=== PATIENT | female | born 1995 | race Caucasian/White ===

== ENCOUNTER 2019-11-29 14:02 | Emergency (ER) | payer MEDICAID, OTHER ==
[~2019-11-29] VITALS: Ht 160 cm; Wt 90.9 kg
--- NOTE | 2019-11-29 14:49 | ED Cough/URI ---
General Chief Complaint: Cough/Cold/Flu Symptoms Stated Complaint: FEVER,CONGESTION Nursing Triage Note: Pt arrived by private vehicle with chief complaint of fever and cough. The pt has been feeling like "crap" since wednesday. Pt stated she had a fever of 100 degree yesterday. Pt has been having a headache and has been having chills. Pt took tylenol she stated. Pt stated she has been having a dry cough. Pt stated she has to be checked out to return to work. Sepsis Screen: No Definite Risk Source: patient Exam Limitations: no limitations History of Present Illness Date Seen by Provider: Nov 29, 2019 Time Seen by Provider: 14:30 Initial Comments The patient is a 24-year-old female who presents for evaluation of fever, cough, headache, and general malaise. She took her temperature yesterday and states that it was under degrees Fahrenheit. At the time she took Tylenol. She's been having a nonproductive cough over the last few days. She does smoke cigarettes. 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 Additionally, she has a sore throat. She denies neck pain or neck stiffness, nausea or vomiting, diarrhea, back or flank pain, abdominal pain, dizziness or syncope. She states that she is having some mild rib discomfort only when she coughs. She does not feel short of breath at this time while she is sitting down not exerting herself but says that with some exertion she does get a little short of breath. I did advise the patient to stop smoking cigarettes. Timing/Duration: other (3 days) Severity/Quality: mild, dry cough Associated Symptoms: cough, fever/chills, headache, muscle aches Allergies and Home Medications Patient Home Medication List Home Medication List Reviewed: Yes Review of Systems Review of Systems Constitutional: chills, fever EENTM: throat pain Respiratory: cough Cardiovascular: no symptoms reported Gastrointestinal: no symptoms reported Genitourinary: no symptoms reported Musculoskeletal: no symptoms reported Skin: no symptoms reported Psychiatric/Neurological: No Symptoms Reported Hematologic/Lymphatic: No Symptoms Reported Immunological/Allergic: no symptoms reported All Other Systems Reviewed Negative Unless Noted: Yes Past Whzeeqh-Sxckgm-Kqfish Hx Past Med/Social Hx: Reviewed Nursing Past Med/Soc Hx Patient Social History Alcohol Use: Occasionally Uses Recreational Drug Use: No Smoking Status: Current Everyday Smoker Type Used: Cigarettes 2nd Hand Smoke Exposure: Yes Recent Foreign Travel: No Contact w/Someone Who Travel: No Recent Infectious Disease Expo: No Recent Hopitalizations: No Physical Abuse: No Sexual Abuse: No Mistreated: No Fear: No Seasonal Allergies Seasonal Allergies: No Past Medical History Surgeries: No Respiratory: No Cardiac: No 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 oz. kg; 35.00 BMI Method: General Appearance: WD/WN, no apparent distress Eyes: Bilateral Eye Normal Inspection, Bilateral Eye PERRL, Bilateral Eye EOMI HEENT: PERRL/EOMI, normal ENT inspection, pharynx normal Neck: non-tender, full range of motion Respiratory: chest non-tender, lungs clear, normal breath sounds, no respiratory distress, other (not coughing) Cardiovascular: regular rate, rhythm, no edema, no JVD Gastrointestinal: normal bowel sounds, non tender, soft Extremities: normal range of motion, non-tender, no pedal edema Neurologic/Psychiatric: rejogger II-XII nml as tested, no motor/sensory deficits, alert, normal mood/affect, oriented x 3 Skin: normal color, warm/dry Progress/Results/Core Measures Suspected Sepsis Recent Fever Within 48 Hours: No Infection Criteria Present: Suspected New Infection New/Unexplained Altered Menta: No Sepsis Screen: No Definite Risk SIRS Temperature: Pulse: 76 Respiratory Rate: 18 Blood Pressure 105 /71 Mean: 82 Results/Orders Lab Results Laboratory Tests Test 11/29/19 14:29 Range/Units Group A Streptococcus Screen NEGATIVE NEGATIVE Micro Results Microbiology 11/29/19 Influenza Types A,B Antigen (YO) - Final, Complete My Orders Orders - DAVID VALIENTE DO Influenza A And B Antigens (11/29/19 14:29) Rapid Strep A Screen (11/29/19 14:29) Chest 1 View Ap/Pa Only (11/29/19 14:29) Vital Signs/I&O 11/29/19 14:21 Temp 36.2 Pulse 76 Resp 18 B/P (MAP) 105/71 (82) Pulse Ox 95 O2 Delivery Room Air Capillary Refill : Less Than 3 Seconds Blood Pressure Mean: 82 Progress Note : Progress Note @1506 - patient has a likely viral flulike illness and/or bronchitis. Her symptoms did not seem to fit the new coronavirus. Advised the patient to stay home from work until she is fever free for at least 2-3 days and feeling better and to discuss this with her primary care doctor before returning to work. Advised the patient to return to the emergency Department immediately for difficult breathing, new or worsening symptoms. Workup today fails to reveal any emergent pathology and the patient is stable for discharge. Advised the patient to stop smoking cigarettes. Departure Impression Primary Impression: Influenza-like symptoms Additional Impression: Bronchitis Disposition: 01 HOME, SELF-CARE Condition: Stable Departure-Patient Inst. Decision time for Depature: 15:08 Referrals: NO,LOCAL PHYSICIAN (PCP/Family) Primary Care Physician Patient Instructions: Viral Syndrome (DC), Acute Bronchitis, Adult (DC) Add. Discharge Instructions: Follow-up with your doctor in the next 2-3 days by calling their office. Take Tylenol home for fever or pain relief. Return to the emergency department for difficulty breathing, new or worsening symptoms. Scripts Benzonatate (TESSALON PERLES) 100 Mg Capsule 100 MG PO Q8H PRN for COUGH for 5 Days, #15 CAP Prov: DAVID VALIENTE DO 11/29/19 Albuterol Sulfate (PROAIR HFA) 1 Puff Puff 2 PUFF IH Q4H PRN for WHEEZING for 30 Days, #1 PUFF 1 PUFF = 90 MCG Prov: DAVID VALIENTE DO 11/29/19 Prednisone (Prednisone) 20 Mg Tab 40 MG PO DAILY for 5 Days, #5 TAB 0 Refills Prov: DAVID VALIENTE DO 11/29/19 DAVID VALIENTE DO Nov 29, 2019 14:49
--- OUTSIDE RECORDS SUMMARY | 2019-11-29 14:52 | XMS REPORT | Continuity of Care Document ---
Author Organization Unknown Address Unknown Phone Unavailable Allergies There is no data. Medications There is no data. Problems There is no data. Procedures There is no data. Results There is no data. Encounters ACCT No. Visit Date/Time Discharge Status Pt. Type Provider Facility Loc./Unit Complaint [id number] 11/29/2019 14:09:[address] Emergency STEFFANIE HERNANDEZ DO [facility] ER FS FEVER,CONGESTION
--- NOTE | 2019-11-29 14:56 | Diagnostic Imaging Report ---
Indication: Cough and fever Portable chest 2:47 PM Heart size and pulmonary vascularity are normal. Lungs are clear. There are no effusions or pneumothoraces. IMPRESSION: Negative chest Dictated by: Dictated on workstation # [id number]
[2019-11-29] MEDS ORDERED: PRD20T PO (15:13)
[2019-11-29] MEDS ORDERED: BENZ100C18 PO (15:13)
[2019-11-29] MEDS ORDERED: RT-ALBUINH IH (15:13)
[2019-11-29 15:20] VITALS: BP 125/80
== END 2019-11-29 15:20 | disposition home or self-care (01) ==
LOC: ER FS 14:09
DX: J40 Bronchitis, not specified as acute or chronic (principal); F17.210 Nicotine dependence, cigarettes, uncomplicated
CPT/HCPCS: 71045; 87430; 87804

== ENCOUNTER 2020-01-30 10:53 | Emergency (ER) | payer MEDICAID ==
[~2020-01-30] VITALS: Ht 160 cm; Wt 98.8 kg
[~2020-01-30 10:53] MED LIST: BENZ100C18 PO; PRD20T PO; RT-ALBUINH IH
--- NOTE | 2020-01-30 11:10 | ED General ---
General Stated Complaint: ABD PAIN; DIARRHEA Source of Information: Patient, Old Records, RN/MD History of Present Illness Date Seen by Provider: Jan 30, 2020 Time Seen by Provider: 11:00 Initial Comments This patient is a 24-year-old female presents to the emergency department complaining abdominal cramping and diarrhea for the past 3 days. Patient states she noticed it after [place] food. Patient states she's had significant cramping. Patient states she noted blood in her stool this morning. Patient s tates been mostly watery for the past Several days. We'll do medical evaluation treatment is needed Timing/Duration: 2-3 Days Associated Systoms: No Denies Symptoms, No Chest Pain, No Cough, No Diaphoresis, No Fever/Chills, No Headaches; Loss of Appetite; No Malaise, No Nausea/Vomiting, No Rash, No Seizure, No Shortness of Air, No Syncope, No Weakness, No Other Allergies and Home Medications Allergies Coded Allergies: No Known Drug Allergies (Unverified , 01/30/20) Home Medications Albuterol Sulfate 1 Puff Puff, 2 PUFF IH Q4H PRN for WHEEZING 1 PUFF = 90 MCG Prescribed by: DAVID VALIENTE on 11/29/191512 Benzonatate 100 Mg Capsule, 100 MG PO Q8H PRN for COUGH Prescribed by: DAVID VALIENTE on 11/29/191512 Prednisone 20 Mg Tab, 40 MG PO DAILY Prescribed by: DAVID VALIENTE on 11/29/191512 Patient Home Medication List Home Medication List Reviewed: Yes Review of Systems Review of Systems Constitutional: No no symptoms reported; see HPI; No chills, No diaphoresis, No dizziness, No fever, No malaise, No weakness, No weight gain, No weight loss, No other EENTM: No see HPI, No no symptoms reported, No ear discharge, No hearing loss, No ear pain, No blurred vision, No double vision, No eye pain, No tearing, No vision loss, No dental problems, No hoarseness, No mouth pain, No mouth swelling, No epistaxis, No nose congestion, No nose pain, No throat pain, No throat swelling, No other Respiratory: No no symptoms reported, No see HPI, No cough, No dyspnea on exertion, No hemoptysis, No orthopnea, No phlegm, No short of breath, No stridor, No wheezing, No other Cardiovascular: No no symptoms reported, No see HPI, No chest pain, No edema, No Hx of Intervention, No palpitations, No syncope, No vascular heart diseas, No other Gastrointestinal: No RUQ, No LUQ, No RLQ, No LLQ, No no symptoms reported; see HPI, abdominal pain; No constipation; diarrhea; No dysphagia, No hematemesis, No heartburn, No jaundice, No loss of appetite, No melena, No nausea, No vomiting, No other Genitourinary: No no symptoms reported, No see HPI, No decreased output, No discharge, No dysuria, No frequency, No hematuria, No hesitancy, No incontinence, No nocturia, No pain, No other Musculoskeletal: No no symptoms reported, No see HPI, No back pain, No gout, No joint pain, No joint swelling, No muscle pain, No muscle stiffness, No muscle cramps, No muscle twitching, No muscle weakness, No neck pain, No other Skin: No no symptoms reported, No see HPI, No change in color, No change in hair/nails, No dryness, No hx of skin cancer, No lesions, No lumps, No pruritus, No rash, No other All Other Systems Reviewed Negative Unless Noted: Yes Past Oqotkss-Auzpjz-Ynythq Hx Patient Social History Type Used: Cigarettes 2nd Hand Smoke Exposure: Yes Recent Foreign Travel: No Contact w/Someone Who Travel: No Recent Hopitalizations: No Seasonal Allergies Seasonal Allergies: No Past Medical History Surgeries: No Respiratory: No Cardiac: 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 oz. kg; 35.00 BMI Method: General Appearance: No Apparent Distress, WD/WN Neck: Full Range of Motion, Normal Inspection, Non Tender, Supple Respiratory: Chest Non Tender, Lungs Clear, Normal Breath Sounds, No Accessory Muscle Use, No Respiratory Distress Cardiovascular: Regular Rate, Rhythm, No Edema, No Gallop, No JVD, No Murmur, Normal Peripheral Pulses Gastrointestinal: Normal Bowel Sounds, No Organomegaly, No Pulsatile Mass, Non Tender, Soft Neurologic/Psychiatric: Alert, Oriented x3, No Motor/Sensory Deficits, Normal Mood/Affect Skin: Normal Color, Warm/Dry Progress/Results/Core Measures Suspected Sepsis SIRS Temperature: Pulse: Respiratory Rate: Laboratory Tests 01/30/20 11:15: White Blood Count 10.7 Blood Pressure / Mean: Laboratory Tests 01/30/20 11:15: Creatinine 0.81, Platelet Count 204, Total Bilirubin 0.4 Results/Orders Lab Results Laboratory Tests Test 01/30/20 11:15 Range/Units White Blood Count 10.7 4.3-11.0 10^3/uL Red Blood Count 5.91 H 4.35-5.85 10^6/uL Hemoglobin 15.3 11.5-16.0 G/DL Hematocrit 48 35-52 % Mean Corpuscular Volume 81 80-99 FL Mean Corpuscular Hemoglobin 26 25-34 PG Mean Corpuscular Hemoglobin Concent 32 32-36 G/DL Red Cell Distribution Width 14.6 H 10.0-14.5 % Platelet Count 204 130-400 10^3/uL Mean Platelet Volume 11.6 H 7.4-10.4 FL Neutrophils (%) (Auto) 80 H 42-75 % Lymphocytes (%) (Auto) 10 L 12-44 % Monocytes (%) (Auto) 8 0-12 % Eosinophils (%) (Auto) 1 0-10 % Basophils (%) (Auto) 1 0-10 % Neutrophils # (Auto) 8.5 H 1.8-7.8 X 10^3 Lymphocytes # (Auto) 1.1 1.0-4.0 X 10^3 Monocytes # (Auto) 0.9 0.0-1.0 X 10^3 Eosinophils # (Auto) 0.1 0.0-0.3 10^3/uL Basophils # (Auto) 0.1 0.0-0.1 10^3/uL Urine Color YELLOW Urine Clarity CLEAR Urine pH 6.0 5-9 Urine Specific [place] >=1.030 1.016-1.022 Urine Protein NEGATIVE NEGATIVE Urine Glucose (UA) NEGATIVE NEGATIVE Urine Ketones NEGATIVE NEGATIVE Urine Nitrite NEGATIVE NEGATIVE Urine Bilirubin NEGATIVE NEGATIVE Urine Urobilinogen 0.2 < = 1.0 MG/DL Urine Leukocyte Esterase NEGATIVE NEGATIVE Urine RBC (Auto) NEGATIVE NEGATIVE Urine RBC NONE /HPF Urine WBC 0-2 /HPF Urine Squamous Epithelial Cells 5-10 /HPF Urine Crystals PRESENT H /LPF Urine Calcium Oxalate Crystals MODERATE H /LPF Urine Bacteria NEGATIVE /HPF Urine Casts NONE /LPF Urine Mucus LARGE H /LPF Urine Culture Indicated NO Urine Test NEGATIVE NEGATIVE Sodium Level 140 135-145 MMOL/L Potassium Level 3.9 3.6-5.0 MMOL/L Chloride Level 101 98-107 MMOL/L Carbon Dioxide Level 24 21-32 MMOL/L Anion Gap 15 H 5-14 MMOL/L Blood Urea Nitrogen 9 7-18 MG/DL Creatinine 0.81 0.60-1.30 MG/DL Estimat Glomerular Filtration Rate > 60 BUN/Creatinine Ratio 11 Glucose Level 113 H 70-105 MG/DL Calcium Level 9.5 8.5-10.1 MG/DL Corrected Calcium 9.3 8.5-10.1 MG/DL Total Bilirubin 0.4 0.1-1.0 MG/DL Aspartate Amino Transf (AST/SGOT) 13 5-34 U/L Alanine Aminotransferase (ALT/SGPT) 23 0-55 U/L Alkaline Phosphatase 89 40-136 U/L Total Protein 7.9 6.4-8.2 GM/DL Albumin 4.2 3.2-4.5 GM/DL My Orders Orders - ALIN JERRY MD Hcg,Qualitative Urine (01/30/20 11:03) Cbc With Automated Diff (01/30/20 11:03) Comprehensive Metabolic Panel (01/30/20 11:03) Urinalysis (01/30/20 11:03) Ed Iv/Invasive Line Start (01/30/20 11:03) Abdomen Flat & Upright/Decub (01/30/20 11:05) Ns Iv 500 Ml (Sodium Chloride 0.9%) (01/30/20 11:32) Ns Iv 500 Ml (Sodium Chloride 0.9%) (01/30/20 11:33) Vital Signs/I&O 01/30/20 11:00 Temp 36.8 Pulse 88 Resp 16 B/P (MAP) 133/87 (102) Pulse Ox 96 O2 Delivery Room Air Capillary Refill : Progress Note : Time: 12:05 Progress Note Encourage by mouth fluids. Tylenol Motrin and Bentyl as needed for pain. Ambulate often. Did not take anything stronger than Pepto-Bismol as needed for diarrhea. High-fiber diet. Departure Impression Primary Impression: Diarrhea Additional Impression: Abdominal cramps Disposition: 01 HOME, SELF-CARE Condition: Stable Departure-Patient Inst. Decision time for Depature: 12:06 Referrals: JB CABRERA MD (PCP) Primary Care Physician Patient Instructions: Gas and Bloating Add. Discharge Instructions: Encourage by mouth fluids. Tylenol Motrin and Bentyl as needed for pain. Ambulate often. Did not take anything stronger than Pepto-Bismol as needed for diarrhea. High-fiber diet. Scripts Dicyclomine HCl (Dicyclomine HCl) 20 Mg Tablet 20 MG PO TID, #20 TAB 0 Refills Prov: ALIN JERRY MD 01/30/20 ALIN JERRY MD Jan 30, 2020 11:10
[2020-01-30] MEDS ORDERED: NS IV 500 ML 500 ML IV STA (11:32)
[2020-01-30] MEDS ORDERED: NS IV 500 ML 500 ML ONE (11:33)
[2020-01-30 11:35] LABS: BILIRUBIN,URINE NEGATIVE (NEGATIVE); CLARITY,URINE CLEAR; COLOR,URINE YELLOW; GLUCOSE, URINE (UA) NEGATIVE (NEGATIVE); KETONES,URINE NEGATIVE (NEGATIVE); LEUKOCYTE ESTERASE ,URINE NEGATIVE (NEGATIVE); NITRITE,URINE NEGATIVE (NEGATIVE); PROTEIN,URINE NEGATIVE (NEGATIVE)
[2020-01-30 11:36] LABS: BACTERIA,URINE NEGATIVE /HPF; CALCIUM OXALATE CRYSTALS,UR MODERATE /LPF; WBC,URINE 0-2 /HPF
[2020-01-30 11:38] LABS: BASOPHILS # (AUTO) 0.1 10^3/uL (0.0-0.1); BASOPHILS % (AUTO) 1 % (0-10); EOSINOPHILS # (AUTO) 0.1 10^3/uL (0.0-0.3); EOSINOPHILS % (AUTO) 1 % (0-10); HEMATOCRIT 48 % (35-52); HEMOGLOBIN 15.3 G/DL (11.5-16.0); LYMPHOCYTES # (AUTO) 1.1 X 10^3 (1.0-4.0); LYMPHOCYTES % (AUTO) 10 % (12-44); MEAN CORPUSCULAR HEMOGLOBIN 26 PG (25-34); MEAN CORPUSCULAR HGB CONC 32 G/DL (32-36); MEAN CORPUSCULAR VOLUME 81 FL (80-99); MEAN PLATELET VOLUME 11.6 FL (7.4-10.4); MONOCYTES # (AUTO) 0.9 X 10^3 (0.0-1.0); MONOCYTES % (AUTO) 8 % (0-12); NEUTROPHILS # (AUTO) 8.5 X 10^3 (1.8-7.8); NEUTROPHILS % (AUTO) 80 % (42-75); PLATELET COUNT 204 10^3/uL (130-400); RED CELL DISTRIBUTION WIDTH 14.6 % (10.0-14.5); WHITE BLOOD COUNT 10.7 10^3/uL (4.3-11.0)
[2020-01-30 11:49] LABS: ALKALINE PHOSPHATASE 89 U/L (40-136); BILIRUBIN,TOTAL 0.4 MG/DL (0.1-1.0); BUN/CREATININE RATIO 11; CALCIUM 9.5 MG/DL (8.5-10.1); CARBON DIOXIDE 24 MMOL/L (21-32); CHLORIDE 101 MMOL/L (98-107); CREATININE SERUM 0.81 MG/DL (0.60-1.30); GFR ESTIMATED > 60; GLUCOSE 113 MG/DL (70-105); POTASSIUM 3.9 MMOL/L (3.6-5.0); SODIUM 140 MMOL/L (135-145)
[2020-01-30 11:50] LABS: ALANINE AMINOTRANSFERASE 23 U/L (0-55); ALBUMIN 4.2 GM/DL (3.2-4.5); TOTAL PROTEIN 7.9 GM/DL (6.4-8.2)
--- NOTE | 2020-01-30 11:50 | Diagnostic Imaging Report ---
INDICATION: Abdominal pain, cramping. TECHNIQUE: Supine and upright view of the abdomen at 11:28 a.m. CORRELATION STUDY: None. FINDINGS: There is a generalized paucity of bowel gas. There is essentially single gas-distended loop of small bowel in the left midabdomen. There may be very minimal amount of gas in the adjacent descending colon. Also, very small amount of gas in the stomach. No significant fecal retention. No pathologic intra-abdominal calcifications. Lung bases are clear. IMPRESSION: 1. Generalized paucity of bowel gas with a nonspecific pattern. Dictated by: Dictated on workstation # [id number]
[2020-01-30] MEDS ORDERED: DICY20TA10 PO (12:07)
--- OUTSIDE RECORDS SUMMARY | 2020-01-30 12:12 | XMS REPORT | Continuity of Care Document ---
Author Organization Unknown Address Unknown Phone Unavailable Allergies There is no data. Medications There is no data. Problems Date Dx Coded Attending Type Code Diagnosis Diagnosed By 11/29/2019 STEFFANIE HERNANDEZ DO Ot F17.210 NICOTINE DEPENDENCE, CIGARETTES, UNCOMPL 11/29/2019 STEFFANIE HERNANDEZ DO Ot J40 BRONCHITIS, NOT SPECIFIED ACUTE OR CH 11/29/2019 STEFFANIE HERNANDEZ DO Ot R50. 9 FEVER, UNSPECIFIED 11/30/2019 STEFFANIE HERNANDEZ DO Ot F17.210 NICOTINE DEPENDENCE, CIGARETTES, UNCOMPL 11/30/2019 STEFFANIE HERNANDEZ DO Ot J40 BRONCHITIS, NOT SPECIFIED ACUTE OR CH 11/30/2019 STEFFANIE HERNANDEZ DO Ot R50. 9 FEVER, UNSPECIFIED Procedures There is no data. Results Test Result Range Streptococcus pyogenes antigen detection - 11/29/19 14:29 Streptococcus pyogenes antigen detection NEGATIVE NEGATIVE Influenza virus A and B antigen detectio n - 11/29/19 14:29 FLU RESULT NEGATIVE FOR INFLUENZA A AND B ANTIGENS BY IA NRG Bacterial throat culture - 11/29/19 14:2 9 Bacterial throat culture NBS NRG Encounters ACCT No. Visit Date/Time Discharge Status Pt. Type Provider Facility Loc./Unit Complaint [id number] 11/29/2019 14:09:00 020 15:20:00 DIS Emergency STEFFANIE HERNANDEZ DO Via [facility] ER FS FEVER,CONGESTION
--- OUTSIDE RECORDS SUMMARY | 2020-01-30 12:12 | XMS REPORT ---
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[employer] Name Role Phone SKINNY MERCADO Unavailable PROBLEMS Type Condition ICD9-CM Code [id number] Code Onset Dates Condition S tatus SNOMED Code Problem Ovulation pain N94.0 Active 38830 008 ALLERGIES No Information ENCOUNTERS Encounter Location Date Diagnosis [facility] [id number] [place] [address] Feb, Burning with urination R30.0 ; UTI symptoms R39.9 and Ovulation pain N94.0 [facility] [place] [id number] [place] [address] Feb, IMMUNIZATIONS No Known Immunizations SOCIAL HISTORY Never Assessed REASON FOR VISIT PLAN OF CARE VITAL SIGNS MEDICATIONS No Known Medications RESULTS No Results PROCEDURES No Known procedures INSTRUCTIONS MEDICATIONS ADMINISTERED No Known Medications MEDICAL (GENERAL) HISTORY Type Description Date Medical History blood transfusion -- during childbirth
[2020-01-30 12:15] VITALS: BP 133/85
== END 2020-01-30 12:15 | disposition home or self-care (01) ==
LOC: EDUNIT# 10:53 → ER FS 10:55
DX: R19.7 Diarrhea, unspecified (principal); R10.9 Unspecified abdominal pain; Z79.52 Long term (current) use of systemic steroids; Z77.22 Contact with and (suspected) exposure to environmental tobacco smoke (acute) (chronic)
CPT/HCPCS: 36415; 74019; 80053; 81000; 84703; 85025

== ENCOUNTER 2023-01-31 13:32 | Emergency (ER) | payer MEDICAID, OTHER ==
[~2023-01-31 13:32] MED LIST changes: +ALBU8.5H6 IH; +DICY20TA PO; -RT-ALBUINH IH
--- NOTE | 2023-01-31 13:45 | ED General ---
General Chief Complaint: Foreign Body Stated Complaint: FOREIGN OBJECT History of Present Illness Date Seen by Provider: Jan 31, 2023 Time Seen by Provider: 13:41 Initial Comments 27-year-old female presents with a dermal facial piercing. She reports a little infected and was requesting it to be removed. She went to urgent care just prior to arrival who started her on antibiotics and recommended she come to the ER to see if we would remove it. Allergies and Home Medications Allergies Coded Allergies: No Known Drug Allergies (Unverified , 01/30/20) Patient Home Medication List Home Medication List Reviewed: Yes Albuterol Sulfate (Ventolin Hfa) 1 Puff Puff, 2 PUFF IH Q4H PRN for WHEEZING Prescribed by: DAVID VALIENTE on 11/29/19 1513 Benzonatate (Tessalon Perles) 100 Mg Capsule, 100 MG PO Q8H PRN for COUGH Prescribed by: DAVID VALIENTE on 11/29/19 1513 Dicyclomine HCl (Dicyclomine HCl) 20 Mg Tablet, 20 MG PO TID Prescribed by: ALIN JERRY on 01/30/20 1207 Prednisone (Prednisone) 20 Mg Tab, 40 MG PO DAILY Prescribed by: DAVID VALIENTE on 11/29/19 1513 Review of Systems Review of Systems Constitutional: see HPI EENTM: see HPI Respiratory: no symptoms reported Cardiovascular: no symptoms reported Gastrointestinal: no symptoms reported Genitourinary: no symptoms reported Musculoskeletal: no symptoms reported Skin: no symptoms reported Past Afhcklu-Kzgqqv-Xrxqrv Hx Seasonal Allergies Seasonal Allergies: No Past Medical History Surgeries: No Respiratory: No 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 oz. kg; 38.00 BMI Method: General Appearance: No Apparent Distress, WD/WN HEENT: Other (Multiple piercings in the face with dermal piercing right cheek) Extremity: Normal Capillary Refill, Normal Inspection Neurologic/Psychiatric: Alert, Oriented x3, No Motor/Sensory Deficits, Normal Mood/Affect Skin: Tattoos/Piercings, Other (Mild cellulitis right cheek near dermal.) Progress/Results/Core Measures Suspected Sepsis SIRS Temperature: Pulse: Respiratory Rate: Blood Pressure / Mean: Results/Orders Vital Signs/I&O Capillary Refill : Progress Note : Progress Note Patient with a dermal piercing with surrounding mild cellulitis. She is already been prescribed an antibiotic that she should start today. Discussed with her that due to high risk of complications including worsening infection, poor scarring and a minor surgical operation needed to remove piercing that at this time that is not available in the emergency room that she will need to follow-up with a general surgeon or toe stapler for removal. Also recommended that she take her antibiotics to ensure that her cellulitis has improved prior to having it removed. Patient was stable and discharged home Departure Impression Primary Impression: Infected pierced face Disposition: HOME, SELF-CARE Condition: Stable Departure-Patient Inst. Referrals: JB CABRERA MD (PCP/Family) Primary Care Physician Patient Instructions: Cellulitis (Skin Infection), Adult (DC) Add. Discharge Instructions: Please take your antibiotic as prescribed. Please contact either Abdirahman Louie at [place] for an appointment to set up a time for removal. You may also choose a general surgeon of your choice or toe stapler. Please wash face with gentle warm soapy water cleansing. All discharge instructions reviewed with patient and/or family. Voiced understanding. JUNE SANCHEZ DO Jan 31, 2023 13:45
[2023-01-31 13:46] VITALS: BP 127/82
== END 2023-01-31 13:46 | disposition home or self-care (01) ==
LOC: EDUNIT# 13:32 → ER FS 13:34
DX: S00.85XA Superficial foreign body of other part of head, initial encounter (principal); L03.818 Cellulitis of other sites; W45.8XXA Other foreign body or object entering through skin, initial encounter
CPT/HCPCS: 99281